=== PATIENT | female | born 1945 | race Caucasian/White ===

== ENCOUNTER → 2018-01-11 13:05 | Outpatient (CLI) | payer MEDICARE, OTHER, SELFPAY | PROVIDERS: Visit Provider Internal Medicine | DX: N95.1 Menopausal and female climacteric states (principal) | CPT/HCPCS: 77080 ==

== ENCOUNTER → 2018-01-31 14:57 | Outpatient (CLI) | payer MEDICARE, OTHER, SELFPAY ==
--- NOTE | 2018-01-31 15:03 | DI.RAD.S_ITS ---
PROCEDURE: XR LUMBAR SPINE MIN 4V INDICATIONS: L4-5 HNP with right lower extremity radicular TECHNIQUE: 5 views of the lumbar spine were acquired. [facility] [place] [place] LUMB [facility] 4VW, 01/12/2016, 16:30. FINDINGS: Bones: 5 nonrib-bearing vertebrae are present. There is slight retrolisthesis at L4-5, unchanged. No vertebral body compression fractures. No suspicious bony lesions. The degenerative disc disease is evident in the lower 3 lumbar levels, most marked at L4-5 as before. There is facet arthropathy also present at those levels, most marked at L5-S1. Soft tissues: Overlying bowel gas pattern is normal. No suspicious soft tissue calcifications. Oblique images: No pars defects. IMPRESSION: 1. Degenerative disc disease and facet arthropathy L3-4, L4-5 and L5-S1. Slight malalignment L4-5 with retrolisthesis. No acute bony abnormality or interval change. Dictated by: Silver Edwards M.D. on 01/31/2018 at 16:16 Approved by: Silver Edwards M.D. on 01/31/2018 at 16:19
--- NOTE | 2018-01-31 15:03 | DI.RAD.S_ITS ---
PROCEDURE: XR CERVICAL SPINE 4V OR 5V INDICATIONS: Chronic neck pain status post cervical fusion TECHNIQUE: 5 views of the cervical spine acquired. COMPARISON: None. FINDINGS: Bones: No fractures or dislocations to the C7 level. Status post anterior discectomy and fusion C6-7. Remainder of disc spaces appear maintained. No malalignment. Oblique images are not optimally rotated. No high-grade bony foraminal stenoses. Soft tissues: No prevertebral soft tissue swelling. IMPRESSION: 1. Status postoperative changes at the C6-7 disc level, otherwise unremarkable Dictated by: Silver Edwards M.D. on 01/31/2018 at 16:13 Approved by: Silver Edwards M.D. on 01/31/2018 at 16:16
--- NOTE | 2018-01-31 15:03 | DI.MRI.S_ITS ---
PROCEDURE: MR LUMBAR SPINE WO CON INDICATIONS: Right sided low back and right thigh pain TECHNIQUE: Noncontrast sagittal T1 spin echo and T2 fast echo, sagittal STIR, axial T1 and T2 fast spin echo through the lumbar spine. In cases with scoliosis, additional coronal T2 fast spin echo may be performed. COMPARISON: [facility], MR, L-SPINE WITHOUT CONTRAST, 12/23/2015, 8:57. FINDINGS: Image quality: Excellent. Alignment and Curvature: There is normal bony alignment. Bone Marrow: Reactive sclerosis over the vertebral endplates at L4-5., Otherwise normal overall bone marrow signal. No acute vertebral body compression fractures. Spinal Cord: Conus medullaris terminates at the L1 level. Visualized cord demonstrates normal signal and size. Paraspinous Soft Tissues: No paravertebral masses. Not previously noted but unchanged is a 10 x 17 mm right-sided Tarlov cyst at the S2 level. Again noted is a left renal cortical cyst measuring 2.6 x 3.7 cm, unchanged. L1-L2: Normal appearance. L2-L3: Mild posterolateral annular bulge is accentuated on the left. Bilateral facet arthropathy and ligamentous thickening. There is no right foraminal stenosis. There is mild central and left foraminal stenosis. L3-L4: Broad-based annular bulge and bilateral facet arthropathy creates a mild central canal stenosis, sagittal diameter of the thecal sac at 10.0 mm. There is moderate right and mild left foraminal stenosis. L4-L5: Disc degeneration with minimal posterior annular bulge. Bilateral facet arthropathy. As previously noted, there is apparent scar tissue secondary to prior left hemilaminotomy, causing mild impression on the posterolateral thecal sac and mild central canal stenosis. Unchanged is moderate right and mild left foraminal stenosis.. L5-S1: Disc degeneration with broad-based annular bulge causing mild flattening of the ventral sac and mild central canal stenosis. No apparent impingement of the S1 nerve roots. Bilateral facet arthropathy and ligamentous thickening, left greater than right. There is moderate right and mild left foraminal stenosis. IMPRESSION: 1. Overall, no significant change from the prior exam. 2. There is mild central canal stenosis at several levels, most marked at the L3-4 level. 3. Degenerative disc disease and facet arthropathy causes moderate foraminal stenosis on the right at L3-4, L4-5 and L5-S1 as before. 4. Apparent soft tissue scarring secondary to previous surgery at the left L4-5 level IV correlation with clinical history. 5. Incidental findings of large left renal cyst and prominent right S2 Tarlov cyst as before. Dictated by: Silver Edwards M.D. on 01/31/2018 at 16:23 Approved by: Silver Edwards M.D. on 01/31/2018 at 16:39
== END ==
PROVIDERS: Visit Provider Physical Medicine & Rehabilitation
DX: M54.5 Low back pain (principal); M79.651 Pain in right thigh; M47.9 Spondylosis, unspecified; M47.816 Spondylosis without myelopathy or radiculopathy, lumbar region; M54.2 Cervicalgia
CPT/HCPCS: 72050; 72110; 72148

== ENCOUNTER 2018-02-14 12:31 | Outpatient (CLI) | payer MEDICARE, OTHER, SELFPAY ==
[2018-02-14] VITALS (7 sets, daily range): BP systolic 100–153; BP diastolic 31–74; PULSE 59–85; RESP 9–20; TEMP 36.1; O2SAT 96–100
--- NOTE | 2018-02-14 12:35 | DI.RAD.S_ITS ---
PROCEDURE: PAIN L/S TRANSFORAMINAL INJECT INDICATIONS: LOWER EXTREMITY RADICULOPATHTY FINDINGS: Fluoroscopic spot filming was performed to verify placement of spinal needles at the right L4-5 nerve root region, as labeled on the films. Appropriate location(s) of the needle tip(s) was confirmed by injection of iodinated contrast. IMPRESSION: Successful right epidural L4-L5 nerve root region localization. Dictated by: Chaitanya Plunkett M.D. on 02/14/2018 at 15:50 Approved by: Chaitanya Plunkett M.D. on 02/14/2018 at 15:50
--- NOTE | 2018-02-14 14:30 | P.PCN_ITS ---
Procedures Date/Time Date of procedure: 02/14/18 Time of procedure: 15:01 General Procedure description: PREOP DIAGNOSIS 1. FORAMINAL STENOSIS WITH LE SYMPTOMS POST OP DIAGNOSIS 1. FORAMINAL STENOSIS WITH LE SYMPTOMS PROCEDURES 1. FLUOROSCOPICALLY GUIDED CONTRAST CONTROLLED TRANSFORAMINAL EPIDURAL STEROID INJECTION - RIGHT L4/5 TFESI PHYSICIAN: Gonzalo Yung DO INDICATIONS: Verenice is referred by Dr. Castillo for treatment of Foraminal Stenosis with Right LE Symptoms FINDINGS Foraminal Nerve Root Compression secondary to disc disease and facet hypertrophy DESCRIPTION OF PROCEDURE: Following denial of allergy and review of potential side effects and complications, including, but not necessarily limited to, infection, allergic reaction, local tissue breakdown, stroke, temporary or permanent nerve injury, paralysis, and possible , the patient indicated that the patient understood and agreed to proceed. An informed consent document was signed by the patient, witnessed by a nurse, and placed in the patient's chart. Additionally, other treatment options including medications, modalities, and physical therapy were reviewed with the patient. Per the patient request, IV conscious sedation was administered via 3mg of Versed to patient comfort. The patient's vital signs were monitored throughout the procedure by both the nurse and the physician without significant fluctuation. The patient remained conversant throughout the procedure. In the prone position following sterile prep and drape of the lumbar region, the Right L4/5 posterior neuroforamen was identified fluoroscopically. The skin was anesthetized via a 25-gauge 1.5-inch needle with 1% lidocaine solution. At this point, a 25-gauge 3.5-inch spinal needle was atraumatically introduced and advanced under fluoroscopic guidance through the posterior Right L4/5 neuroforamen to approximately the anterior aspect of the canal. Depth was confirmed on lateral view. Following negative aspiration, injection of approximately 1.5 cc of Isovue 200 under live fluoroscopy in the AP view confirmed excellent flow along the nerve root, into the epidural space without vascular or intrathecal uptake observed Radiological data, including multiple fluoroscopic views of the lumbosacral spine, reveal a spinal needle at the right L4/5 posterior neuroforamen. Subsequent views show flow of contrast material flowing superiorly and inferiorly along the nerve root confirming epidural flow. Subsequently, a test dose of 1.5 cc of 1% lidocaine solution was administered and patient was observed for two minutes for signs or symptoms of complications , including abdominal pain, shortness of breath, bilateral upper or lower extremity weakness, nausea and vomiting, prior to steroid injection. At this point, a total of 3 cc or 20 mg of dexamethasone and 80mg Depo Medrol was injected without incident. The patient was then transferred to the recovery area where they were observed for an appropriate time after the injection. The patient reported a VAS score of 7 prior to the procedure and a post-procedure VAS of 0. Total Fluoroscopy Time: 20.9 seconds Total Conscious Sedation Time: 24min POST OP INSTRUCTIONS The patient was provided a Pain Log to continue to record their response to the target-specific procedure prior to follow-up visit with their referring physician. Additionally, specific post-injection care instructions and a contact number to our office were provided if concerns arise regarding possible complications associated with the procedure are suspected. Gonzalo Yung DO Complications: none
[2018-02-14] MEDS: BUPIVACAINE 0.25% (PF) 30 ML VIAL INJ (14:53)
[2018-02-14] MEDS: IOPAMIDOL 15 ML VIAL 3 ML INJ (14:54)
[2018-02-14] MEDS: methylPREDNISolone acetate 80 MG/ML VIAL INJ (14:54)
[2018-02-14] MEDS: MIDAZOLAM 5 MG/5 ML VIAL IV (14:54)
[2018-02-14] MEDS: DEXAMETHASONE 10 MG/ML VIAL 20 MG INJ (14:54)
== END 2018-02-14 16:31 | disposition home or self-care (01) ==
LOC: RAD 12:34
PROVIDERS: Visit Provider Physical Medicine & Rehabilitation
DX: M48.061 Spinal stenosis, lumbar region without neurogenic claudication (principal); M51.16 Intervertebral disc disorders with radiculopathy, lumbar region
CPT/HCPCS: 64483; 99152; J1040; J1100; J2250

== ENCOUNTER 2018-04-17 14:28 | Outpatient (CLI) | payer MEDICARE, OTHER, SELFPAY ==
[2018-04-17] VITALS (8 sets, daily range): BP systolic 106–156; BP diastolic 45–83; PULSE 56–71; RESP 16–18; TEMP 36.2; O2SAT 96–100
--- NOTE | 2018-04-17 14:30 | DI.RAD.S_ITS ---
PROCEDURE: PAIN L/S TRANSFORAMINAL INJECT INDICATIONS: SPINAL STENOSIS FINDINGS: Fluoroscopic spot filming was performed to verify placement of spinal needles at the L3-L4 level(s), as labeled on the films. Appropriate location(s) of the needle tip(s) was confirmed by injection of iodinated contrast. IMPRESSION: Fluoroscopy for pain management. Dictated by: Krzysztof Castaneda M.D. on 04/17/2018 at 16:17 Approved by: Krzysztof Castaneda M.D. on 04/17/2018 at 16:17
--- NOTE | 2018-04-17 15:07 | P.PCN_ITS ---
Procedures Date/Time Date of procedure: 04/17/18 Time of procedure: 15:07 General Procedure description: PROVIDER: Gonzalo Yung DO Operative Note PREOP DIAGNOSIS 1. FORAMINAL STENOSIS WITH LE SYMPTOMS, POST OP DIAGNOSIS 1. FORAMINAL STENOSIS WITH LE SYMPTOMS, PROCEDURES 1. FLUOROSCOPICALLY GUIDED CONTRAST CONTROLLED TRANSFORAMINAL EPIDURAL STEROID INJECTION - RIGHT L3/4 TFESI SURGEON: Gonzalo Yung DO INDICATIONS Verenice is referred by Dr. Castillo for treatment of Foraminal Stenosis with right LE Symptoms FINDINGS Foraminal Nerve Root Compression secondary to disc disease and facet hypertrophy DESCRIPTION OF PROCEDURE Following denial of allergy and review of potential side effects and complications, including, but not necessarily limited to, infection, allergic reaction, local tissue breakdown, stroke, temporary or permanent nerve injury, paralysis, and possible , the patient indicated that the patient understood and agreed to proceed. An informed consent document was signed by the patient, witnessed by a nurse, and placed in the patient's chart. Additionally, other treatment options including medications, modalities, and physical therapy were reviewed with the patient. After review of previous anaesthesic history and IV conscious sedation the patient was deemed safe to proceed with todays procedure with IV conscious sedation as ASA class II designation. Safety time-out was performed to confirm patient ID, procedure to be performed and site of procedure. IV sedation was accomplished with a combination of 3mg was administered by the RN after DO order , titrated to patient comfort during the course of the procedure while the patient remained responsive to all verbal commands In the prone position following sterile prep and drape of the lumbar region, the right L3/4 posterior neuroforamen was identified fluoroscopically. The skin was anesthetized via a 25-gauge 1.5-inch needle with 1% lidocaine solution. At this point, a 25-gauge 3.5-inch spinal needle was atraumatically introduced and advanced under fluoroscopic guidance through the posterior right L3/4 neuroforamen to approximately the anterior aspect of the canal. Depth was confirmed on lateral view. Following negative aspiration, injection of approximately 1.5 cc of Isovue 200 under live fluoroscopy in the AP view confirmed excellent flow along the nerve root, into the epidural space without vascular or intrathecal uptake observed Radiological data, including multiple fluoroscopic views of the lumbosacral spine, reveal a spinal needle at the right L3/4 posterior neuroforamen. Subsequent views show flow of contrast material flowing superiorly and inferiorly along the nerve root confirming epidural flow. Subsequently, a test dose of 1.5 cc of 1% lidocaine solution was administered and patient was observed for two minutes for signs or symptoms of complications , including abdominal pain, shortness of breath, bilateral upper or lower extremity weakness, nausea and vomiting, prior to steroid injection. At this point, a total of 3 cc or 20 mg of dexamethasone and 80mg Depo medrol was injected without incident. The patient tolerated the procedure well without signs or symptoms of complications prior to transfer to the recovery area continued monitoring without incident. The patient was then transferred to the recovery area where they were observed for an appropriate time after the injection. The patient reported a VAS score of 7 prior to the procedure and a post-procedure VAS of 0. Total Fluoroscopy Time: 24.2 seconds Total Conscious Sedation Time: 24min POST OP INSTRUCTIONS The patient was provided a Pain Log to continue to record their response to the target-specific procedure prior to follow-up visit with their referring physician. Additionally, specific post-injection care instructions and a contact number to our office were provided if concerns arise regarding possible complications associated with the procedure are suspected. Gonzalo Yung DO
[2018-04-17] MEDS: MIDAZOLAM 5 MG/5 ML VIAL IV (15:17)
[2018-04-17] MEDS: IOPAMIDOL 15 ML VIAL 3 ML INJ (15:22)
[2018-04-17] MEDS: BUPIVACAINE 0.25% (PF) VIAL 2 ML INJ (15:22)
[2018-04-17] MEDS: methylPREDNISolone acetate 80 MG/ML VIAL INJ (15:22)
[2018-04-17] MEDS: DEXAMETHASONE 10 MG/ML VIAL 20 MG INJ (15:22)
--- NOTE | 2018-04-18 13:22 | PC.NURSE ---
post follow up call made and left message as pt was not available by phone.
== END 2018-04-17 16:02 | disposition home or self-care (01) ==
PROVIDERS: PCP Internal Medicine; Visit Provider Physical Medicine & Rehabilitation
DX: M48.062 Spinal stenosis, lumbar region with neurogenic claudication (principal); M51.16 Intervertebral disc disorders with radiculopathy, lumbar region
CPT/HCPCS: 64483; 99152; J1040; J1100; J2250

== ENCOUNTER → 2018-05-14 13:42 | Outpatient (CLI) | payer MEDICARE, OTHER, SELFPAY ==
--- NOTE | 2018-05-14 | DI.MRI.S_ITS ---
PROCEDURE: MR LUMBAR SPINE WO CON INDICATIONS: LOW BACK PAIN TECHNIQUE: Noncontrast sagittal T1 spin echo and T2 fast echo, sagittal STIR, axial T1 and T2 fast spin echo through the lumbar spine. In cases with scoliosis, additional coronal T2 fast spin echo may be performed. COMPARISON: [facility], CR, XR LUMBAR SPINE MIN 4V, 01/31/2018, 15:17. [facility], MR, MR LUMBAR SPINE WO CON, 01/31/2018, 15:03. FINDINGS: Image quality: Excellent. Alignment and Curvature: There is normal bony alignment. Bone Marrow: Reactive endplate change is noted adjacent to the L4-L5 and L5-S1 discs.. No acute vertebral body compression fractures. Spinal Cord: Conus medullaris terminates at the L1-L2 level. Visualized cord demonstrates normal signal and size. Paraspinous Soft Tissues: No paravertebral masses. 4.1 cm in maximum diameter left renal cyst. L1-L2: Normal appearance. L2-L3: Loss of disc signal. Minimal, diffuse disc bulge. Mild bilateral facet hypertrophy. No central stenosis. No neural foraminal narrowing. No neural impingement. L3-L4: Loss of disc signal and height. Mild, diffuse disc bulge. Mild bilateral facet hypertrophy. Mild narrowing of the central canal. Mild bilateral neural foraminal narrowing. No neural impingement. L4-L5: Prior right hemilaminotomy. Loss of disc signal and height. Mild diffuse associated mild bilateral facet hypertrophy. Mild narrowing of the central canal. Mild bilateral neural foraminal narrowing. No neural impingement.. L5-S1: Loss of disc signal and slight loss of disc height. Mild, diffuse disc bulge or mild bilateral facet hypertrophy. No central stenosis. Severe right and moderate left neural foraminal narrowing with flattening deformity exiting right L5 nerve root. IMPRESSION: 1. Multilevel degenerative disc disease. 2. Multilevel facet arthropathy. 3. Mild L3-L4 and L4-L5 central canal narrowing. 4. Severe right and moderate left L5-S1 neural foraminal narrowing. Mild bilateral L3-L4 and L4-L5 neural foraminal narrowing. 5. Flattened deformity of the exiting right L5 nerve root secondary to neural foraminal narrowing. Please correlate with clinical data. Dictated by: Keri Moreno MD, PhD on 05/14/2018 at 15:36 Approved by: Keri Moreno MD, PhD on 05/14/2018 at 15:41
== END ==
PROVIDERS: PCP Internal Medicine; Visit Provider Internal Medicine
DX: M54.5 Low back pain (principal); M51.36 Other intervertebral disc degeneration, lumbar region; M51.37 Other intervertebral disc degeneration, lumbosacral region; M47.816 Spondylosis without myelopathy or radiculopathy, lumbar region; M47.817 Spondylosis without myelopathy or radiculopathy, lumbosacral region; M48.061 Spinal stenosis, lumbar region without neurogenic claudication; M48.07 Spinal stenosis, lumbosacral region
CPT/HCPCS: 72148